=== PATIENT | female | born 1985 ===

== ENCOUNTER 2018-10-30 11:23 | Observation (INO) | payer MEDICAID ==
[2018-10-30 11:25] VITALS: BMI 20.5
[2018-10-30] MEDS ORDERED: Sodium Chloride 0.9% 1,000 ML IV STA ×2 (12:38)
--- NOTE | 2018-10-30 13:20 | ED PDOC ---
Hyperglycemia/Hypoglycemia Time Seen by Provider: 10/30/18 12:31 Chief Complaint (Nursing): High Blood Sugar Chief Complaint (Provider): High blood sugar History Per: Patient History/Exam Limitations: no limitations Onset/Duration Of Symptoms: Sudden Onset Current Symptoms Are (Timing): Still Present Current Diabetic Medications: Insulin : The patient does not have any of the infectious symptoms listed except for those marked. Additional Complaint(s): 33 year old female with type I diabetes presents to the ED with high blood sugar, nausea and abdominal pain. Patient reports she does not have insurance or primary care so she goes to the ER to refill her insulin. Her last dosage of insulin was last night which she only took a smaller dosage since she is running out of insulin and she ran out of testing strips. Otherwise, she denies any other complaints. PMD: no family provider Past Medical History Reviewed: Historical Data, Nursing Documentation, Vital Signs Vital Signs: Last Vital Signs Temp 98.7 F 10/30/18 11:25 Pulse 107 H 10/30/18 11:25 Resp 17 10/30/18 11:25 BP 119/79 10/30/18 11:25 Pulse Ox 100 10/30/18 11:25 - Medical History PMH: Anxiety, Diabetes - Family History Family History: States: Unknown Family Hx - Social History Current smoker - smoking cessation education provided: Yes (Heavy Smoker > 10 Cigarettes Daily) - Immunization History Hx Tetanus Toxoid Vaccination: Yes Hx Influenza Vaccination: Yes Hx Pneumococcal Vaccination: Yes - Home Medications Home Medications: Ambulatory Orders Medication Instructions Recorded Benztropine [Cogentin] 0.5 mg PO Q12 10/30/18 Cholestyramine [Questran] 4 gm PO BID 10/30/18 Divalproex [Depakodonna DR (*BID*)] 750 mg PO Q12 10/30/18 Ferrous Sulfate 325 mg PO DAILY 10/30/18 Insulin Glargine, Recombina 10 unit SC QPM 10/30/18 [Lantus] Insulin Glargine, Recombina 28 unit SC QAM 10/30/18 [Lantus] Multivitamin,Therapeutic [Therems] 1 tab PO DAILY 10/30/18 QUEtiapine [Seroquel] 100 mg PO BID 10/30/18 Quetiapine Fumarate [Seroquel] 300 mg PO HS 10/30/18 traZODone [Desyrel] 200 mg PO HS 10/30/18 Ciprofloxacin HCl [Cipro] 500 mg PO BID 3 Days #6 tablet 10/31/18 Insulin Detemir [Levemir] 15 units SC HS 30 Days vial 10/31/18 Insulin Lispro [humALOG] 15 unit SC ACTID 30 Days ml 10/31/18 - Allergies Allergies/Adverse Reactions: Allergies Allergy/AdvReac Type Severity Reaction Status Date / Time No Known Allergies Allergy Verified 10/19/18 09:05 Review of Systems ROS Statement: Except As Marked, All Systems Reviewed And Found Negative Constitutional: Negative for: Fever Cardiovascular: Negative for: Chest Pain Respiratory: Negative for: Shortness of Breath Gastrointestinal: Positive for: Nausea, Abdominal Pain Physical Exam - Reviewed Nursing Documentation Reviewed: Yes Vital Signs Reviewed: Yes - Physical Exam Appears: Negative for: Well (uncomfortable; appears tired; lying in position ) Head Exam: Positive for: ATRAUMATIC, NORMAL INSPECTION, NORMOCEPHALIC Skin: Positive for: Diaphoresis (mildly ) Eye Exam: Positive for: EOMI, Normal appearance, PERRL ENT: Positive for: Normal ENT Inspection Neck: Positive for: Normal, Painless ROM, Supple. Negative for: Decreased ROM Cardiovascular/Chest: Positive for: Regular Rate, Rhythm, Tachycardia Gastrointestinal/Abdominal: Positive for: Soft, Tenderness (diffuse ) Back: Positive for: Normal Inspection Extremity: Positive for: Normal ROM. Negative for: Tenderness, Pedal Edema, Deformity Neurological/Psych: Positive for: Awake, Alert, Normal Tone, Oriented (x3) - Laboratory Results Result Diagrams: 10/31/18 05:45 10/31/18 05:45 - ECG O2 Sat by Pulse Oximetry: 100 (RA) Pulse Ox Interpretation: Normal - Critical Care Total Time (In Min): 60 Medical Decision Making Medical Decision Making: Time: 1237 Impression: workup for hyperglycemia/DKA. Will order labs, IV fluids and give insulin once potassium report is back. Reassess patients afterwards Plan: VBG EKG CMP Magnesium Phosphorous CBC w/ differential PTT Prothrombin time Chest portable [RAD] Normal saline 1000 mls/hr Zofran 4mg UA 1430 Initial labs and IV fluids were delayed as patient has difficult venous access. This provider () was able to obtain access through a peripheral external jugular line. Pt given 2L of NS and Insulin bolus. Pt started on Insulin drip. Labs show pH of 7.3 with lactate of 3.6. AG of 13 (Mild DKA). Pt to be admitted to hospitalist with consult with interventionalist pagejefferson for ICU placement (pt on insulin drip). [address] Serrano (Dye Beck Reel Operator) who will evaluate the patient. ------ Scribe Attestation: Documented by Rm Monroe, acting as a scribe for Michelle West MD Provider Scribe Attestation: All medical record entries made by the Scribe were at my direction and personally dictated by me. I have reviewed the chart and agree that the record accurately reflects my personal performance of the history, physical exam, medical decision making, and the department course for this patient. I have also personally directed, reviewed, and agree with the discharge instructions and disposition. Disposition - Clinical Impression Clinical Impression: Diabetic complication, Hyperglycemia, DKA (diabetic ketoacidosis) - Disposition Disposition Time: 14:45 Condition: GOOD
[2018-10-30 13:26] LABS: ALB/GLOB RATIO 1.2 (1.0-2.1); ALBUMIN 4.1 g/dL (3.5-5.0); BLOOD UREA NITROGEN 21 mg/dl (7-17); CALCIUM 9.4 mg/dL (8.4-10.2); GFR NON-AFRICAN AMERICAN > 60
[2018-10-30 13:27] LABS: ALT/SGPT 16 U/L (9-52); AST/SGOT 30 U/L (14-36)
[2018-10-30] MEDS ORDERED: Insulin Regular 100 units/ml SC STA (13:39)
[2018-10-30 13:41] LABS: INR 0.8
[2018-10-30 13:44] LABS: PARTIAL THROMBOPLASTIN TIME 29.2 Seconds (25.6-37.1)
[2018-10-30 13:48] LABS: VENOUS BLOOD GAS BASE EXCESS -1.1 mmol/L (0.0-2.0); VENOUS BLOOD GAS PCO2 51 mmHg (40-60); VENOUS BLOOD GAS PO2 41 mm/Hg (30-55); VENOUS BLOOD PH 7.31 (7.32-7.43)
[2018-10-30 14:04] LABS: PROTHROMBIN TIME 9.4 Seconds (9.8-13.1)
[2018-10-30] MEDS ORDERED: Dextrose 50% SYRINGE Inj (50 ml) IV PRN (14:12)
[2018-10-30] MEDS ORDERED: Glucagon Recombinant 1 mg Inj IM PRN (14:12)
[2018-10-30] MEDS ORDERED: Insulin Regular 100 units/ml ONE (14:17)
[2018-10-30 14:18] LABS: BASO % 0.5 % (0.0-2.0); EOS # 0.2 K/uL (0.0-0.7); EOS % 3.5 % (0.0-4.0); HEMOGLOBIN 11.1 g/dL (12.0-16.0); LYMPH % 43.7 % (20.0-40.0); MEAN CORPUSCULAR HEMOGLOBIN 28.1 pg (27.0-31.0); MEAN CORPUSCULAR HGB CONC 32.3 g/dL (33.0-37.0); MEAN PLATELET VOLUME 9.5 fl (7.2-11.7); MONO # 0.3 K/uL (0.0-0.8); MONO % 7.5 % (0.0-10.0); NEUT # 2.1 K/uL (1.8-7.0); NEUT % 44.8 % (50.0-75.0); RBC 3.95 Mil/uL (3.80-5.20); RED CELL DISTRIBUTION WIDTH 14.3 % (11.5-14.5); WHITE BLOOD COUNT 4.6 K/uL (4.8-10.8)
--- NOTE | 2018-10-30 14:50 | RAD ---
Date of service: 10/30/2018 HISTORY: possible admission COMPARISON: None. FINDINGS: LUNGS: Low lung volumes accentuate pulmonary markings. This likely accounts increased pulmonary markings, findings at the lung bases. PLEURA: No significant pleural effusion identified, no pneumothorax apparent. CARDIOVASCULAR: No atherosclerotic calcification present Normal. OSSEOUS STRUCTURES: No significant abnormalities. VISUALIZED UPPER ABDOMEN: Normal. OTHER FINDINGS: None. IMPRESSION: Low lung volumes/basilar atelectasis. Otherwise unremarkable study.
--- NOTE | 2018-10-30 15:06 | CP.PCM.HP ---
History of Present Illness - History of Present Illness History of Present Illness: Pt is a 33 yo F with a pmhx of IDDM1 since childhood, presented to the ED with N/V, abdominal pain, leg pain, polyphagia, polydipsia, polyuria, fatigue, blurry vision. Pt reports she has not taken her insulin for 1 day. Denies hx of recent infection or illness. Reports she has not checked her blood sugar in 3 days. PMD: None- received her meds from hospital Pmhx: IDDM, "low bp" Meds: Humalog 15units, Levemir 15units, Trazadone, Seroquel, Benztropine, Cholestyramine, Depakote, Ferrous sulfate, Lantus, Humalog, Allergies:NKDA Social Hx: 1/ PPD tobacco, smokes marijuana, denies alcohol Surg Hx: Appendectomy 2019 Family Hx: Denies Emergency contact: [place] ED course: VBG- PH 7.31, Lactate 3.6, glucose 416, EKG- sinus tachy, CMP- K 5.1 calculated anion gap 12.75, Magnesium- 1.9, Phosphorous 3.8 CBC w/ differential -wbc 4.6, HG/HCT 11.1/34.3, PTT 29.2, Prothrombin time- 9.4, CXR- low lung volumes/bibasilar atelectasis. Normal saline 1000 mls/hr (2 Liters), Zofran 4mg, UA, Insulin bolus, Insulin drip Present on Admission - Present on Admission Any Indicators Present on Admission: No History of DVT/PE: No History of Uncontrolled Diabetes: Yes Urinary Catheter: No Decubitus Ulcer Present: No Review of Systems - Constitutional Constitutional: Fatigue - EENT Eyes: Blurred Vision - Gastrointestinal Gastrointestinal: Abdominal Pain, Nausea, Vomiting - Musculoskeletal Additional comments: Leg pain and swelling - Endocrine Endocrine: Fatigue, Polydipsia, Polyphagia, Polyuria Past Patient History - Past Social History Smoking Status: Heavy Smoker > 10 Cigarettes Daily Alcohol: None Drugs: Cannabis - ENDOCRINE/METABOLIC Hx Diabetes Mellitus Type 1: Yes - MUSCULOSKELETAL/RHEUMATOLOGICAL Hx Falls: (unable to say) - PSYCHIATRIC Hx Anxiety: Yes - SURGICAL HISTORY Hx Surgeries: No - ANESTHESIA Hx Anesthesia: No Meds Allergies/Adverse Reactions: Allergies Allergy/AdvReac Type Severity Reaction Status Date / Time No Known Allergies Allergy Verified 10/19/18 09:05 Physical Exam - Constitutional Appears: Toxic, No Acute Distress - Head Exam Head Exam: ATRAUMATIC, NORMAL INSPECTION, NORMOCEPHALIC - Eye Exam Eye Exam: EOMI - ENT Exam ENT Exam: Mucous Membranes Moist Additional comments: Poor dentition - Respiratory Exam Respiratory Exam: Clear to Auscultation Bilateral. absent: Rales, Rhonchi, Wheezes - Cardiovascular Exam Cardiovascular Exam: Tachycardia, +S1, +S2 - GI/Abdominal Exam GI & Abdominal Exam: Normal Bowel Sounds, Tenderness (Diffuse). absent: Guarding, Rebound, Rigid - Extremities Exam Extremities exam: Positive for: pedal edema (1+) - Neurological Exam Neurological exam: Alert, Oriented x3 Results - Vital Signs Recent Vital Signs: Last Vital Signs Temp 98.7 F 10/30/18 11:25 Pulse 107 H 10/30/18 11:25 Resp 17 10/30/18 11:25 BP 119/79 10/30/18 11:25 Pulse Ox 100 10/30/18 14:57 - Labs Result Diagrams: 10/30/18 13:40 10/30/18 12:57 Labs: Laboratory Results - last 24 hr 10/30/18 10/30/18 10/30/18 11:32 12:39 12:57 WBC RBC Hgb Hct MCV MCH MCHC RDW Plt Count MPV Neut % (Auto) Lymph % (Auto) Mclennan % (Auto) Eos % (Auto) Baso % (Auto) Neut # (Auto) Lymph # (Auto) Mclennan # (Auto) Eos # (Auto) Baso # (Auto) PT INR APTT pO2 41 VBG pH 7.31 L VBG pCO2 51 VBG HCO3 23.6 VBG Total CO2 27.3 VBG O2 Sat (Calc) 83.5 H VBG Base Excess -1.1 L VBG Potassium 4.4 Sodium 135.0 136 Chloride 100.0 102 Glucose 416 H* Lactate 3.6 H FiO2 21.0 Blood Gas Comments Vbg Crit Value Called To Maya saeed r.n. Crit Value Called By Aga Crit Value Read Back Y Blood Gas Notified Time 1348 Potassium 5.1 H Carbon Dioxide 21 L Anion Gap 18 BUN 21 H Creatinine 0.5 L Est GFR ( Amer) > 60 Est GFR (Non-Af Amer) > 60 POC Glucose (mg/dL) 389 H Random Glucose 394 H Calcium 9.4 Phosphorus 3.8 Magnesium 1.9 Total Bilirubin 0.4 AST 30 ALT 16 Alkaline Phosphatase 98 Total Protein 7.4 Albumin 4.1 Globulin 3.3 Albumin/Globulin Ratio 1.2 Venous Blood Potassium 4.4 10/30/18 10/30/18 13:10 13:40 WBC 4.6 L RBC 3.95 Hgb 11.1 L Hct 34.3 MCV 87.0 MCH 28.1 MCHC 32.3 L RDW 14.3 Plt Count 224 MPV 9.5 Neut % (Auto) 44.8 L Lymph % (Auto) 43.7 H Mclennan % (Auto) 7.5 Eos % (Auto) 3.5 Baso % (Auto) 0.5 Neut # (Auto) 2.1 Lymph # (Auto) 2.0 Mclennan # (Auto) 0.3 Eos # (Auto) 0.2 Baso # (Auto) 0.0 PT 9.4 L INR 0.8 APTT 29.2 pO2 VBG pH VBG pCO2 VBG HCO3 VBG Total CO2 VBG O2 Sat (Calc) VBG Base Excess VBG Potassium Sodium Chloride Glucose Lactate FiO2 Blood Gas Comments Crit Value Called To Crit Value Called By Crit Value Read Back Blood Gas Notified Time Potassium Carbon Dioxide Anion Gap BUN Creatinine Est GFR ( Amer) Est GFR (Non-Af Amer) POC Glucose (mg/dL) Random Glucose Calcium Phosphorus Magnesium Total Bilirubin AST ALT Alkaline Phosphatase Total Protein Albumin Globulin Albumin/Globulin Ratio Venous Blood Potassium Assessment & Plan - Assessment and Plan (Free Text) Assessment: Pt is a 33 yo F with a pmhx of IDDM1 since childhood, presented to the ED with N/V, abdominal pain, leg pain, polyphagia, polydipsia, polyuria, fatigue, blurry vision admitted for hyperglycemia. Hyperglycemia Uncontrolled 2/2 IDDM1 Acute, uncontrolled POC 389 Nonanion gap acidosis 12.75 Admit to MedSurg Fluid resuscitation Accuchecks ACHS Hypoglycemic protocol Insulin Levemir 15units, Lispro 15 units Consult endocrine- Dr. Diaz-f/u reccs HGA1C from 02/04/18 12.5, ordered repeat c/w home psych meds F/u B hydroxybuturate, ABG, BMP, Urine drug screen, HGA1C Hx of Fe deficiency Anemia Hg/HCT 11.1/34.3 Restarted Ferrous Sulfate 325mg WD Mild hyperkalemia acute, K 5.1 c/w insulin F/u BMP in AM Diet Diabetic DVT PPX Lovenox 40mg SC Code status Full code - Date & Time Date: 10/30/18 Time: 16:37
[2018-10-30] MEDS ORDERED: Insulin Lispro (humaLOG) 100 Units/ml Inj SC SCH ×2 (16:30)
[2018-10-30 16:47] LABS: ABG ALLEN TEST YES; ARTERIAL BLOOD GAS HCO3 24.5 mmol/L (21-28); ARTERIAL BLOOD GAS HEMOGLOBIN 11.5 g/dL (11.7-17.4); ARTERIAL BLOOD GAS O2 CAPACITY 15.4 mL/dL (16-24); ARTERIAL BLOOD GAS O2 CONTENT 15.4 ML/dL (15-23); ARTERIAL BLOOD GAS O2 SAT 99.8 % (95-98); ARTERIAL BLOOD GAS PCO2 43 mm/Hg (35-45); ARTERIAL BLOOD GAS PH 7.37 (7.35-7.45); ARTERIAL BLOOD GAS PO2 79 mm/Hg (80-100); ARTERIAL BLOOD GAS TCO2 26.2 mmol/L (22-28)
[2018-10-30 18:14] LABS: BARBITURATES, UR NEGATIVE (NEGATIVE); BENZODIAZEPINES, UR NEGATIVE (NEGATIVE); OPIATES, UR NEGATIVE (NEGATIVE); PHENCYCLIDINE, UR NEGATIVE (NEGATIVE)
[2018-10-30] MEDS: Cholestyramine 4 gm/Pkt UD PO SCH (18:22)
[2018-10-30 19:00] LABS: BLOOD UREA NITROGEN 15 mg/dl (7-17); CALCIUM 8.5 mg/dL (8.4-10.2); GFR NON-AFRICAN AMERICAN > 60
[2018-10-30 21:02] LABS: SQUAMOUS EPITHIAL 1 /hpf (0-5); URINE BACTERIA RARE (<OCC); URINE BILIRUBIN NEGATIVE (NEGATIVE); URINE BLOOD NEGATIVE (NEGATIVE); URINE CLARITY CLEAR (Clear); URINE COLOR STRAW (YELLOW); URINE GLUCOSE (UA) >=500 mg/dL (NEGATIVE); URINE LEUKOCYTE ESTERASE NEG Leu/uL (Negative); URINE PROTEIN NEGATIVE (NEGATIVE); URINE UROBILINOGEN 0.2-1.0 mg/dL (0.2-1.0)
--- NOTE | 2018-10-30 21:02 | CARD ---
APPROVED REPORT Date of service: 10/30/2018 EKG Measurement Heart [id number] <Conclusion> Sinus tachycardia Possible Lateral infarct, age undetermined Abnormal ECG
[2018-10-30] MEDS ORDERED: Insulin Detemir 100 Units/ml Inj SC SCH (22:00)
[2018-10-30] MEDS: Divalproex 250 mg DR(BID formulation) PO SCH (22:54)
[2018-10-30] MEDS: Sodium Chloride 0.9% 1,000 ML IV SCH (23:18)
--- NOTE | 2018-10-31 02:36 | CON ---
DATE: 10/30/2018 CRITICAL CARE CONSULTATION LOCATION: The patient in emergency room, being admitted. REASON FOR CONSULTATION AND HISTORY OF PRESENT ILLNESS: A 33-year-old female with history significant for diabetes mellitus type 1 since childhood, on Levemir and Humalog 15 units three times a day at home, presented to emergency room complaining of nausea, vomiting, abdominal pain, leg pain, and polyphagia. The patient has not taken insulin for the last two days as she ran out the medications. The patient does not have following primary doctor outside the hospital, usually fills up medications from the hospital. In ER, the patient's vital signs were temperature 98.7, heart rate 107, blood pressure 119/79, mean arterial pressure 92, respiratory rate 17, oxygen saturation 100%. The patient's initial lab data showed sodium 136, potassium 5.1, chloride 102, CO2 21, blood urea nitrogen 21, creatinine 0.5 with anion gap 13, and random glucose 389. Her phosphorus, magnesium, and liver enzymes are within normal limits. She was started on insulin drip with IV hydration. ICU evaluation is requested for possible diabetic ketoacidosis. PAST MEDICAL HISTORY: Significant for psychiatric illness with unclear details. MEDICATIONS: On trazodone, Seroquel, benzatropine, cholestyramine, Depakote, ferrous sulfate. ALLERGIES: NONE DOCUMENTED. SOCIAL HISTORY: She smokes about half a pack a day, also reports use of marijuana. SURGICAL HISTORY: Significant for appendectomy in 2019. PHYSICAL EXAMINATION: GENERAL: A middle-aged female in no distress. VITAL SIGNS: She is afebrile. Temperature 98.7, heart rate 107, respiratory rate 17, blood pressure 119/79. HEAD, EYES, EARS, NOSE, AND THROAT: Pupils reactive. Conjunctivae pink. Sclerae white. CHEST: Bilateral breath sounds clear to auscultation. HEART: Rhythm regular. S1, S2 normal intensity. No S3, S4 gallop. No audible murmur. ABDOMEN: Bowel sounds present. Soft. Liver and spleen not palpable. Bladder not distended. EXTREMITIES: No clubbing, cyanosis, edema. NEUROLOGIC: Nonfocal. LABORATORY DATA: WBC 4.6, hemoglobin 11.1, hematocrit 34.3, platelet count 224. SMA-7; sodium 136, potassium 5.1, chloride 102, CO2 21, blood urea nitrogen 21, creatinine 0.5, glucose 394. ABG; pH 7.31, glucose 416, lactate 3.6. IMPRESSION: A 33-year-old female with type 1 diabetes, on Levemir and Humalog insulin, presenting with nausea, vomiting, abdominal discomfort and polyphagia, noted to have hyperglycemia with normal anion gap. Her lactate level is 3.6, but no clear evidence of infection. Would recommend to resume her usual dose of Levemir and Humalog three times a day with meals. Continue intravenous hydration. May wean off the insulin drip. Admit to medical surgical floor if further help is needed. Would suggest intensive care unit, reevaluation. Discussed with Dr. West and also with the admitting physician, . Dominick Serrano MD
[2018-10-31] MEDS: Divalproex 250 mg DR(BID formulation) PO SCH ×2 (03:13→08:34)
--- NOTE | 2018-10-31 04:39 | CON ---
DATE: 10/30/2018 LOCATION: Room 652. HISTORY OF PRESENT ILLNESS: This is a 33-year-old female with known history of type 1 insulin-dependent diabetes, presenting here with marked hyperglycemic accelerations related to recent drug omission and is now being referred for diabetic evaluation and management. The patient actually is homeless and has had problems with her medical insurance, running out recently of her insulin prescriptions as noted thereof. PAST MEDICAL HISTORY: As mentioned above, history of type 1 insulin-dependent diabetes, on a combination of Lantus given as 15 units at night and 28 units in the morning with Humalog insulin given as 15 units t.i.d. with meals, history of hypertension and dyslipidemia, history of generalized anxiety and depression with underlying chronic schizoaffective disorder. FAMILY HISTORY: Positive for diabetes and hypertension. SOCIAL HISTORY: The patient has a supportive family. No known substance use. She admits to being homeless with recent financial constraints because of irregular supply of her prescriptions. REVIEW OF SYSTEMS: Admits to generalized body weakness with progressive bouts of dizziness and lightheadedness with easy fatigability and tiredness. No chest pains or palpitations. Her oral intake has been variable with nausea, dyspepsia. Admits to marked polyuria, nocturia, and polydipsia. PHYSICAL EXAMINATION: GENERAL: An average-built female in no apparent distress. VITAL SIGNS: Blood pressure of 130/80, pulse of 100 beats per minute and regular, temperature 98, respirations 20. Height is 5 feet 4 inches. Weight is 120 pounds. HEENT: Head normocephalic. Eyes anicteric with pink conjunctivae. Funduscopy not possible at this time. Ears, nose, and throat otherwise normal. NECK: Supple. Thyroid gland is normal in size. No carotid bruits or any cervical adenopathy. CARDIOPULMONARY: Some adynamic precordium. S1, S2, rapid and regular. LUNGS: Clear to auscultation. ABDOMEN: Flat, soft with positive bowel sounds. EXTREMITIES: No peripheral edema. Pulses are +2 bilaterally. LABORATORY DATA: Her chemistries showed initially a BUN of 21, sodium 136, potassium 5.1, chloride 102, CO2 21, glucose 394, and creatinine 0.5. ASSESSMENT: This is a 33-year-old female with uncontrolled and decompensated type 1 insulin-dependent diabetes with marked hyperglycemic accelerations and early ketosis related to drug omission and is now being referred for further diabetic evaluation and management. PLAN OF MANAGEMENT: We will continue the vigorous IV hydration as ordered and obtain serial chemistries accordingly. Moreover, we will also modify her basal and bolus insulin drug combination to optimize metabolic control. The biggest concern at this time is her lack of medical insurance and the accessibility to the insulin medications as will be prescribed upon discharge. I would highly recommend the patient to be seen by social media director and also to call the diabetes foundation for insulin supplies for at least three to four months, if possible. We will obtain serial chemistries and supplement accordingly as needed. We will follow up with you. Shantell Diaz MD
[2018-10-31] MEDS: Sodium Chloride 0.9% 1,000 ML IV SCH ×2 (05:27→06:28)
[2018-10-31 06:50] LABS: BASO % 0.5 % (0.0-2.0); EOS # 0.2 K/uL (0.0-0.7); EOS % 3.1 % (0.0-4.0); HEMOGLOBIN 11.2 g/dL (12.0-16.0); LYMPH # 2.9 K/uL (1.0-4.3); LYMPH % 57.3 % (20.0-40.0); MEAN CELL VOLUME 86.3 fl (81.0-99.0); MEAN CORPUSCULAR HEMOGLOBIN 28.1 pg (27.0-31.0); MEAN CORPUSCULAR HGB CONC 32.6 g/dL (33.0-37.0); MEAN PLATELET VOLUME 9.2 fl (7.2-11.7); MONO # 0.4 K/uL (0.0-0.8); MONO % 7.4 % (0.0-10.0); NEUT # 1.6 K/uL (1.8-7.0); NEUT % 31.7 % (50.0-75.0); NRBC % 0.1 % (0.0-0.0); RBC 3.99 Mil/uL (3.80-5.20); RED CELL DISTRIBUTION WIDTH 14.3 % (11.5-14.5); WHITE BLOOD COUNT 5.1 K/uL (4.8-10.8)
[2018-10-31 07:02] LABS: ALB/GLOB RATIO 1.1 (1.0-2.1); ALBUMIN 3.4 g/dL (3.5-5.0); ALT/SGPT 20 U/L (9-52); AST/SGOT 15 U/L (14-36); BLOOD UREA NITROGEN 15 mg/dl (7-17); CALCIUM 8.9 mg/dL (8.4-10.2); GFR NON-AFRICAN AMERICAN > 60; HDL CHOLESTEROL 62 MG/DL (30-70)
[2018-10-31 07:13] LABS: LDL CHOLESTEROL 45 mg/dL (0-129)
[2018-10-31 08:31] VITALS: RESP 18
[2018-10-31] MEDS: Enoxaparin 40 mg Syringe SC SCH ×2 (08:34→08:48)
[2018-10-31] MEDS: Insulin Lispro (humaLOG) 100 Units/ml Inj SC SCH ×6 (08:36→17:46)
[2018-10-31] MEDS: Cholestyramine 4 gm/Pkt UD PO SCH ×2 (09:52→17:40)
--- NOTE | 2018-10-31 13:36 | CP.PCM.DIS ---
Provider - Provider Date of Admission: 10/30/18 14:42 Attending physician: Lencho Fan MD Primary care physician: None Consults: 10/30/18 14:43 Critical Care Consult Stat Comment: Consulting Provider: Dominick Serrano V Consulting Physician: Dominick Serrano V Reason for Consult: DKA 10/30/18 16:16 Endocrinology Consult Stat Comment: Consulting Provider: Shantell Diaz Consulting Physician: Shantell Diaz Reason for Consult: Hyperglycemia uncontrolled Time Spent in preparation of Discharge (in minutes): 10 Diagnosis - Discharge Diagnosis (1) Hyperglycemia Status: Acute Comment: Acute on chronic, resolved. Resolved POC 102. keep hydrated. restart home insulin gave script for insulin, social work giving coupon for accucheck machine. c/w accuchecks at home. F/u with the [facility] December [address] Griselda garcia (2) Substance abuse Status: Acute Comment: chronic. Urine drug screen positive for cocaine and cannabis. Educated extensively on risks of drug use especially with type 1 diabetes, pt verbalizes understanding Hospital Course - Lab Results Lab Results: Most Recent Lab Values WBC 5.1 K/uL (4.8-10.8) 10/31/18 05:45 RBC 3.99 Mil/uL (3.80-5.20) 10/31/18 05:45 Hgb 11.2 g/dL (12.0-16.0) L 10/31/18 05:45 Hct 34.4 % (34.0-47.0) 10/31/18 05:45 MCV 86.3 fl (81.0-99.0) 10/31/18 05:45 MCH 28.1 pg (27.0-31.0) 10/31/18 05:45 MCHC 32.6 g/dL (33.0-37.0) L 10/31/18 05:45 RDW 14.3 % (11.5-14.5) 10/31/18 05:45 Plt Count 238 K/uL (130-400) 10/31/18 05:45 MPV 9.2 fl (7.2-11.7) 10/31/18 05:45 Neut % (Auto) 31.7 % (50.0-75.0) L 10/31/18 05:45 Lymph % (Auto) 57.3 % (20.0-40.0) H 10/31/18 05:45 [place] % (Auto) 7.4 % (0.0-10.0) 10/31/18 05:45 Eos % (Auto) 3.1 % (0.0-4.0) 10/31/18 05:45 Baso % (Auto) 0.5 % (0.0-2.0) 10/31/18 05:45 Neut # (Auto) 1.6 K/uL (1.8-7.0) L 10/31/18 05:45 Lymph # (Auto) 2.9 K/uL (1.0-4.3) 10/31/18 05:45 [place] # (Auto) 0.4 K/uL (0.0-0.8) 10/31/18 05:45 Eos # (Auto) 0.2 K/uL (0.0-0.7) 10/31/18 05:45 Baso # (Auto) 0.0 K/uL (0.0-0.2) 10/31/18 05:45 PT 9.4 Seconds (9.8-13.1) L 10/30/18 13:10 INR 0.8 10/30/18 13:10 APTT 29.2 Seconds (25.6-37.1) 10/30/18 13:10 pCO2 43 mm/Hg (35-45) 10/30/18 16:44 pO2 79 mm/Hg (80-100) L 10/30/18 16:44 HCO3 24.5 mmol/L (21-28) 10/30/18 16:44 ABG pH 7.37 (7.35-7.45) 10/30/18 16:44 ABG Total CO2 26.2 mmol/L (22-28) 10/30/18 16:44 ABG O2 Saturation 99.8 % (95-98) H 10/30/18 16:44 ABG O2 Content 15.4 ML/dL (15-23) 10/30/18 16:44 ABG Base Excess -0.5 mmol/L (-2.0-3.0) 10/30/18 16:44 ABG Hemoglobin 11.5 g/dL (11.7-17.4) L 10/30/18 16:44 ABG Carboxyhemoglobin 2.3 % (0.5-1.5) H 10/30/18 16:44 POC ABG HHb (Measured) 0.2 % (0.0-5.0) 10/30/18 16:44 ABG Methemoglobin 2.3 % (0.0-3.0) 10/30/18 16:44 ABG O2 Capacity 15.4 mL/dL (16-24) L 10/30/18 16:44 Arcenio Test Yes 10/30/18 16:44 VBG pH 7.31 (7.32-7.43) L 10/30/18 12:39 VBG pCO2 51 mmHg (40-60) 10/30/18 12:39 VBG HCO3 23.6 mmol/L 10/30/18 12:39 VBG Total CO2 27.3 mmol/L (22-28) 10/30/18 12:39 VBG O2 Sat (Calc) 83.5 % (40-65) H 10/30/18 12:39 VBG Base Excess -1.1 mmol/L (0.0-2.0) L 10/30/18 12:39 VBG Potassium 4.4 mmol/L (3.6-5.2) 10/30/18 12:39 A-a O2 Difference 17.0 mm/Hg 10/30/18 16:44 Hgb O2 Saturation 95.1 % (95.0-98.0) 10/30/18 16:44 Sodium 135.0 mmol/L (132-148) 10/30/18 12:39 Chloride 100.0 mmol/L (98-107) 10/30/18 12:39 Glucose 416 mg/dL (65-105) H* 10/30/18 12:39 Lactate 3.6 mmol/L (0.7-2.1) H 10/30/18 12:39 FiO2 21.0 % 10/30/18 16:44 Blood Gas Comments Vbg 10/30/18 12:39 Crit Value Called To Maya saeed r.n. 10/30/18 12:39 Crit Value Called By Aga 10/30/18 12:39 Crit Value Read Back Y 10/30/18 12:39 Blood Gas Notified Time 1348 10/30/18 12:39 Sodium 139 mmol/l (132-148) 10/31/18 05:45 Potassium 3.9 MMOL/L (3.6-5.0) 10/31/18 05:45 Chloride 107 mmol/L (98-107) 10/31/18 05:45 Carbon Dioxide 25 mmol/L (22-30) 10/31/18 05:45 Anion Gap 11 (10-20) 10/31/18 05:45 BUN 15 mg/dl (7-17) 10/31/18 05:45 Creatinine 0.6 mg/dl (0.7-1.2) L 10/31/18 05:45 Est GFR ( Amer) > 60 10/31/18 05:45 Est GFR (Non-Af Amer) > 60 10/31/18 05:45 POC Glucose (mg/dL) 102 mg/dL (65-110) 10/31/18 12:27 Random Glucose 119 mg/dL (65-105) H 10/31/18 05:45 Hemoglobin A1c 9.8 % (4.2-6.5) H D 10/31/18 05:45 Calcium 8.9 mg/dL (8.4-10.2) 10/31/18 05:45 Phosphorus 2.8 mg/dl (2.5-4.5) 10/31/18 05:45 Magnesium 1.9 MG/DL (1.6-2.3) 10/31/18 05:45 Total Bilirubin 0.1 mg/dl (0.2-1.3) L 10/31/18 05:45 AST 15 U/L (14-36) 10/31/18 05:45 ALT 20 U/L (9-52) 10/31/18 05:45 Alkaline Phosphatase 74 U/L (38-126) 10/31/18 05:45 Total Protein 6.4 G/DL (6.3-8.2) 10/31/18 05:45 Albumin 3.4 g/dL (3.5-5.0) L 10/31/18 05:45 Globulin 3.0 gm/dL (2.2-3.9) 10/31/18 05:45 Albumin/Globulin Ratio 1.1 (1.0-2.1) 10/31/18 05:45 Triglycerides 147 mg/DL (0-149) 10/31/18 05:45 Cholesterol 126 mg/dL (0-199) 10/31/18 05:45 LDL Cholesterol Direct 45 mg/dL (0-129) 10/31/18 05:45 HDL Cholesterol 62 MG/DL (30-70) 10/31/18 05:45 Thyroxine (T4) 6.59 ug/dl (5.5-11.0) 10/31/18 05:00 TSH 3rd Generation 0.16 mIU/ML (0.46-4.68) L 10/31/18 05:45 Venous Blood Potassium 4.4 mmol/L (3.6-5.2) 10/30/18 12:39 Urine Color Straw (YELLOW) 10/30/18 20:13 Urine Clarity Clear (Clear) 10/30/18 20:13 Urine pH 6.0 (5.0-8.0) 10/30/18 20:13 Ur Specific [place] 1.026 (1.003-1.030) 10/30/18 20:13 Urine Protein Negative mg/dL (NEGATIVE) 10/30/18 20:13 Urine Glucose (UA) >=500 mg/dL (NEGATIVE) 10/30/18 20:13 Urine Ketones Negative mg/dL (NEGATIVE) 10/30/18 20:13 Urine Blood Negative (NEGATIVE) 10/30/18 20:13 Urine Nitrate Negative (NEGATIVE) 10/30/18 20:13 Urine Bilirubin Negative (NEGATIVE) 10/30/18 20:13 Urine Urobilinogen 0.2-1.0 mg/dL (0.2-1.0) 10/30/18 20:13 Ur Leukocyte Esterase Neg Vianey/uL (Negative) 10/30/18 20:13 Urine RBC (Auto) 2 /hpf (0-3) 10/30/18 20:13 Urine Microscopic WBC < 1 /hpf (0-5) 10/30/18 20:13 Ur Squamous Epith Cells 1 /hpf (0-5) 10/30/18 20:13 Urine Bacteria Rare (<OCC) 10/30/18 20:13 Urine Opiates Screen Negative (NEGATIVE) 10/30/18 16:40 Urine Methadone Screen Negative (NEGATIVE) 10/30/18 16:40 Ur Barbiturates Screen Negative (NEGATIVE) 10/30/18 16:40 Ur Phencyclidine Scrn Negative (NEGATIVE) 10/30/18 16:40 Ur Amphetamines Screen Negative (NEGATIVE) 10/30/18 16:40 U Benzodiazepines Scrn Negative (NEGATIVE) 10/30/18 16:40 U Oth Cocaine Metabols Positive (NEGATIVE) H 10/30/18 16:40 U Cannabinoids Screen Positive (NEGATIVE) H 10/30/18 16:40 B-Hydroxybutyrate 0.13 mM (0.02-0.27) 10/30/18 15:29 - Hospital Course Hospital Course: Pt is a 33 yo F with a pmhx of IDDM1 since childhood, substance abuse admitted due to uncontrolled hyperglycemia with non anion gap acidosis (12.7) to [facility] on 10/30/18. Pt is homeless and was having N/V, abdominal pain, leg pain/swelling, polyphagia, polydipsia, polyuria, fatigue, blurry vision. Pt reported she has not taken her insulin for 1 day. Denied hx of recent infection or illness. Reported she had not checked her blood sugar in 3 days and does not have a machine to check at home. Pt insulin was restarted, IVF resuscitation, pain was controlled, urine drug screen positive for cocaine and cannabis. Endocrine consulted recca appreciated. Today pt feels well, reports mild abdominal pain. The polyphagia, polydipsia, polyuria, fatigue, blurry vision leg pain and swelling have resolved. Tolerating oral intake, Pt is hemodynamically stable for D/C her POC is 102, continue with home insulin regimen, keep well hydrated, follow up with [facility] on December [address] Griselad garcia. - Date & Time of H&P Date of H&P: 10/30/18 Time of H&P: 15:05 Discharge Exam - Head Exam Head Exam: ATRAUMATIC, NORMAL INSPECTION, NORMOCEPHALIC - Eye Exam Eye Exam: EOMI, Normal appearance - ENT Exam ENT Exam: Mucous Membranes Moist - Respiratory Exam Respiratory Exam: Clear to PA & Lateral. absent: Rales, Rhonchi, Wheezes - Cardiovascular Exam Cardiovascular Exam: RRR, +S1, +S2 - GI/Abdominal Exam GI & Abdominal Exam: Normal Bowel Sounds, Tenderness (Mild ). absent: Distended, Guarding, Rebound, Rigid - Extremities Exam Extremities exam: normal inspection - Neurological Exam Neurological exam: Alert, Oriented x3 Discharge Plan - Discharge Medications Prescriptions: Ciprofloxacin HCl [Cipro] 500 mg PO BID 3 Days #6 tablet Insulin Detemir [Levemir] 15 units SC HS 30 Days vial Insulin Lispro [humALOG] 15 unit SC ACTID 30 Days ml - Follow Up Plan Condition: GOOD Disposition: HOME/ ROUTINE Instructions: Diabetes Diet , Hyperglycemia, Adult (DC), Blood Glucose Monitoring Additional Instructions: follow up at [facility] pt has appt for December [address] Griselda garcia Referrals: Shantell Diaz MD [Medical Doctor] -
[2018-10-31] MEDS ORDERED: Insulin Lispro (humaLOG) 100 Units/ml Inj SC ONE (15:26)
[2018-10-31 16:00] VITALS: BP 99/65; PULSE 92; TEMP 98.5
[2018-10-31] MEDS ORDERED: Insulin Detemir 100 Units/ml Inj SC SCH (22:00)
--- NOTE | 2018-10-31 23:50 | PN ---
DATE: 10/31/2018 ENDOCRINOLOGY FOLLOWUP NOTE LOCATION: Room 652. SUBJECTIVE: This is a 33-year-old female with recent uncontrolled type 1 insulin-dependent diabetes, now being followed closely for metabolic management. Her glycemic levels are fluctuating but improved. LABORATORY DATA: Her latest chemistry showed a BUN of 15, sodium 139, potassium 3.9, chloride 107, CO2 of 25, glucose 119 and creatinine 0.6. Her glucose levels are fluctuating, ranging from 153 to 300 mg/dL. ASSESSMENT: This is a 33-year-old female with uncontrolled type 1 insulin-dependent diabetes with marked hyperglycemic accelerations related to recent drug omission from financial insurance constraint and is now being followed closely for metabolic management. PLAN OF MANAGEMENT: As discussed with the hospitalist regarding the eventual plan for discharge, we will actually change her insulin regimen to a more affordable insulin vials as discussed. We will change her insulin regimen to Novolin NPH given as 24 units subcu at bedtime daily to start tonight. We will also change her Humalog to Novolin regular insulin given as 10 units t.i.d. before meals as ordered. We will obtain serial chemistries and supplement accordingly as needed. We will follow. Shantell Diaz MD
[2018-11-02 00:30] VITALS: O2SAT 100
== END 2018-10-31 18:29 | disposition home or self-care (01) ==
LOC: H.ER 11:23 → H.ERHOLD 14:42 → INTOOBSV 14:42 → H.MEDSURG1 20:53
PROVIDERS: ADMIT Hospitalist; ATTEND Hospitalist
DX: E10.65 Type 1 diabetes mellitus with hyperglycemia (principal); E87.5 Hyperkalemia; F14.90 Cocaine use, unspecified, uncomplicated; F12.90 Cannabis use, unspecified, uncomplicated; E78.5 Hyperlipidemia, unspecified; D50.9 Iron deficiency anemia, unspecified; I10 Essential (primary) hypertension; Z91.14 Patient's other noncompliance with medication regimen; F25.9 Schizoaffective disorder, unspecified; F41.1 Generalized anxiety disorder; Z79.4 Long term (current) use of insulin; F17.210 Nicotine dependence, cigarettes, uncomplicated; Z59.0 Homelessness
CPT/HCPCS: 36415; 36600; 71045; 80053; 80061; 81003; 81025; 82009; 82803; 82948; 83036; 83735; 84100; 84436; 84443; 85025; 85610; 85730; 93005; 96361; 96365; 96366; 96375; 99285; C9113; G0378; G0480; J2405; J7030